=== PATIENT | male | born 1945 | race Two or more races ===

== ENCOUNTER 2017-05-18 08:58 | Emergency (ER) | payer MEDICARE ==
[~2017-05-18] VITALS: Ht 182.9 cm; Wt 111.6 kg
[2017-05-18 09:01] VITALS: BP 155/66
[2017-05-18] MEDS ORDERED: OXYMETAZOLINE NASAL SPRAY 0.05%, 15ML ONE ×2 (10:43→10:49)
[2017-05-18] MEDS ORDERED: SILVER NITRATE STICK TP ONE (11:41)
[2017-05-18] MEDS ORDERED: APIX5TAB PO (22:33)
== END 2017-05-18 12:27 | disposition home or self-care (01) ==
LOC: ED 12:18
DX: R04.0 Epistaxis (principal); I10 Essential (primary) hypertension; I48.91 Unspecified atrial fibrillation; Z79.01 Long term (current) use of anticoagulants
CPT/HCPCS: 99281

== ENCOUNTER 2017-05-18 21:52 | Emergency (ER) | payer MEDICARE ==
[~2017-05-18] VITALS: Ht 182.9 cm; Wt 111.2 kg
[2017-05-18] MEDS ORDERED: OXYMETAZOLINE NASAL SPRAY 0.05%, 15ML ONE (22:24)
[2017-05-18] MEDS ORDERED: APIX5TAB PO (22:33)
[2017-05-18] MEDS ORDERED: BACITRACIN ZINC OINT 500U/GM, 0.9 GM ONE (22:53)
[2017-05-18] MEDS ORDERED: HYDROcodone/APAP 5/325 TABLET ONE (23:23)
[2017-05-18] MEDS ORDERED: CEPHALEXIN 500 MG CAPSULE ONE (23:23)
[2017-05-18] MEDS ORDERED: CEPHALEXIN 500 MG CAPSULE PO ONE (23:30)
[2017-05-18] MEDS ORDERED: HYDROcodone/APAP 5/325 TABLET PO ONE (23:30)
[2017-05-18 23:56] VITALS: BP_DIAS 74
[2017-05-18 23:58] VITALS: BP_SYST 122
== END 2017-05-19 00:14 | disposition home or self-care (01) ==
LOC: ED 22:25
DX: R04.0 Epistaxis (principal); I10 Essential (primary) hypertension; I48.91 Unspecified atrial fibrillation
CPT/HCPCS: 30901; 93005